=== PATIENT | female | born 1960 | race Caucasian/White ===

== ENCOUNTER → 2017-12-09 | Outpatient (CLI) | payer MEDICAID ==
--- NOTE | 2017-12-13 11:10 | MM ---
Reason for exam: screening (asymptomatic). Last mammogram was performed 2 years and 1 month ago. History: Silicone gel implant in the left breast, 2013. Silicone gel implant in the right breast, 2013. Taking estrogen. Taking progesterone. Physical Findings: A clinical breast exam by your physician is recommended on an annual basis and results should be correlated with mammographic findings. MG 3D Screen Mammo Imp/Cad Bilateral CC and MLO view(s) were taken. Prior study comparison: November 15, 2015, bilateral MG 3d diag mammo imp w/cad [facility]. November 01, 2006, bilateral screening mammogram w/CAD. The breast tissue is heterogeneously dense. This may lower the sensitivity of mammography. No suspicious abnormality. No significant changes when compared with prior studies. ASSESSMENT: Negative, BI-RAD 1 RECOMMENDATION: Routine screening mammogram of both breasts in 1 year.
== END | disposition home or self-care (01) ==
LOC: RADMAMWWP 11:05
PROVIDERS: ATTEND Family Medicine
DX: Z12.31 Encounter for screening mammogram for malignant neoplasm of breast (principal)
CPT/HCPCS: 77063; 77067

== ENCOUNTER → 2018-05-18 | Outpatient (CLI) | payer MEDICAID ==
--- NOTE | 2018-05-18 15:02 | MR ---
EXAMINATION TYPE: MR knee RT wo con DATE OF EXAM: 05/18/2018 COMPARISON: None HISTORY: Sprain of ACL, right knee TECHNIQUE: Multiplanar, multisequence imaging of the right knee is performed without IV contrast. FINDINGS: MEDIAL MENISCUS: Anterior and posterior horns are intact without tear. LATERAL MENISCUS: Anterior and posterior horns are intact without tear. CRUCIATE LIGAMENTS: The anterior and posterior cruciate ligaments are intact and unremarkable. COLLATERAL LIGAMENTS: The medial collateral ligament and lateral collateral ligament complex are inta ct and unremarkable. EXTENSOR MECHANISM: Visualized quadriceps and patellar tendons are intact. EFFUSION: There is a large suprapatellar effusion. This extends the knee joint space. POPLITEAL CYST: There is a large complex popliteal cyst measuring 8.3 x 1.7 cm in size. TRICOMPARTMENT SPACES: Preserved. CARTILAGE: There is some thinning of the patellofemoral joint space articular cartilage. There is a d efect within the distal lateral femoral condyle articular surface BONE MARROW SIGNAL: No focal abnormal marrow signal is appreciated. OTHER: No additional significant abnormality is appreciated. IMPRESSION: 1. Defect along the lateral femoral condylar articular cartilage. Remaining articular cartilage appea rs intact. Some thinning of the patellofemoral cartilage is present. 2. Large joint effusion. 3. Large popliteal cyst. 4. No suspicious anterior cruciate ligament strain or tear
== END | disposition home or self-care (01) ==
LOC: RADMRIMAIN 08:12
PROVIDERS: ATTEND Family Medicine
DX: M71.21 Synovial cyst of popliteal space [Baker], right knee (principal)

== ENCOUNTER 2018-06-09 12:14 | Day surgery (SDC) | payer MEDICAID ==
[2018-06-09] MEDS ORDERED: TRIAMCINOLONE ACETONIDE 40 MG/ML 1 ML VIAL INTRABURSA STA (12:52)
[2018-06-09 14:11] VITALS: RESP 18; TEMP 97.6
[2018-06-09 14:13] VITALS: BP 133/78; PULSE 74
--- NOTE | 2018-06-09 22:01 | US ---
Ultrasound guided right Farley's cyst aspiration and injection Date: 06/09/2018 History: 57-year-old female swelling and pain, referred for Farley cyst aspiration and injection. Procedure: 1. Ultrasound of the right popliteal fossa. 2. Aspiration followed by injection of Kenalog and lidocaine with ultrasound guidance. Technique: The procedure, risks, and alternatives, were discussed with the patient, who requested that luis antonio daugherty. The consent form was signed, and teach-back occurred. The site/side of the procedure was marked wi th a line with participation by the patient. The accompanying paperwork was verified for consistency. A directed history and physical exam was performed prior to the procedure. Medication reconciliation was performed by ancillary personnel. A critical pause was performed with assisting personnel just p rior to the procedure and the patient's identity was confirmed using 2 identifiers. Imaging guidance was utilized to select the precise skin entry point just prior to the procedure. Targeted imaging shows a moderate to large size, 5.0 x 1.5 x 2.1 cm leaking Farley's cyst with some in ternal thickened synovium. The superior aspect of the posterior knee was also scanned but the complex components of the Farley cyst seen on 05/18/2018 MRI are no longer identified. The right popliteal fossa was prepped and draped in the usual sterile fashion and local 1% lidocaine anesthesia was instilled. Under ultrasound guidance, an 18 gauge spinal needle was introduced into the Farley's cyst. Aspiration yielded 10 mL of clear, synovial fluid without difficulty. The cyst was seen to collapse completely with aspiration. However, some residual thickened synovium remains. Subsequently, under ultrasound surveillance, 1 mL of Kenalog-40 was injected into the collapsed cyst followed by 3 mL of 1% lidocaine as the needle was withdrawn. The patient tolerated the procedure well. There were no immediate complications. After the procedure, the patient's condition was unchanged. Es timated blood loss was minimal. The patient was instructed on routine postprocedure precautions. IMPRESSION: Successful ultrasound guided aspiration and steroid injection (40 mg Kenalog) of a mildly complex 5.0 cm right-sided leaking Farley's cyst without complication. Following aspiration, residual mild thicke oscar synovium remains around the collapsed cyst. 10 mL of clear synovial fluid was removed.
== END 2018-06-09 14:10 | disposition home or self-care (01) ==
LOC: RADPROMAIN 12:14
PROVIDERS: ATTEND Orthopaedic Surgery Sports Medicine
DX: M71.21 Synovial cyst of popliteal space [Baker], right knee (principal)
CPT/HCPCS: 96376; 36415; 20611; J3301; 10160; 76942

== ENCOUNTER 2019-01-24 08:57 | Day surgery (SDC) | payer MEDICAID ==
[2019-01-24] MEDS ORDERED: TRIAMCINOLONE ACETONIDE 40 MG/ML 1 ML VIAL INTRABURSA ONE (09:15)
[2019-01-24 09:33] VITALS: PULSE 76; RESP 18; TEMP 98.1
[2019-01-24 10:04] VITALS: BP 137/76
--- NOTE | 2019-01-24 11:43 | US ---
Ultrasound guided right Farley cyst aspiration and injection Date: 01/24/2019 History: 58-year-old female with right knee pain, referred for aspiration and injection of Farley's cy st. Patient reports 9 months of relief following the prior aspiration and injection. Procedure: 1. Ultrasound of the posterior right knee 2. Injection of Kenalog-40 and lidocaine with ultrasound guidance. Technique: The procedure, risks, and alternatives, were discussed with the patient, who requested pilo t we proceed. The consent form was signed, and teach-back occurred. The site/side of the procedure wa s marked with a line with participation by the patient. The accompanying paperwork was verified for c onsistency. A directed history and physical exam was performed prior to the procedure. Medication rec onciliation was performed by ancillary personnel. A critical pause was performed with assisting sameera nicolas just prior to the procedure and the patient's identity was confirmed using 2 identifiers. Imagin g guidance was utilized to select the precise skin entry point just prior to the procedure. Initial ultrasound scanning demonstrates very complex moderate-sized Farley's cyst measuring 4.8 x 1.6 x 2.2 cm. There is extensive thickened synovium within. Small fluid locules are present, the largest fluid pocket measuring approximately 1.5 cm. This is targeted for aspiration. The posterior right knee was prepped and draped in the usual sterile fashion and local 1% lidocaine a nesthesia was instilled. Under ultrasound guidance, an 18 gauge spinal needle was introduced into the right Farley cyst. Ultrasound confirmed the position of the needle tip. Aspiration yielded 3 mL of cl ear synovial fluid in demonstrated collapse of the dominant fluid pocket. Under ultrasound surveillan ce , one mL of Kenalog-40 was injected into the Farley's cyst. Subsequently, 1.5 mL of 1% lidocaine wa s injected into the Farley's cyst and along the needle tract as a needle was removed. The patient tole rated the procedure well. There were no immediate complications. After the procedure, the patient's condition was unchanged. Es timated blood loss was minimal. IMPRESSION: 1. Moderate-sized, highly complex Farley's cyst with extensive thickened synovium. 2. Successful ultrasound guided right Farley cyst aspiration targeting the largest fluid pocket yieldi ng 3 mL of fluid. Successful subsequent injection (40 mg Kenalog 1.5 mL 1% lidocaine) without immedia te complication.
== END 2019-01-24 11:00 | disposition home or self-care (01) ==
LOC: RADPROMAIN 08:57
PROVIDERS: ATTEND Orthopaedic Surgery
DX: M71.21 Synovial cyst of popliteal space [Baker], right knee (principal)
CPT/HCPCS: 20611; J3301; 76942

== ENCOUNTER 2019-04-12 09:16 | Day surgery (SDC) | payer MEDICAID ==
[2019-04-11 09:21] VITALS: BMI 23.7
[~2019-04-12 09:16] MED LIST: LACTATED RINGERS 1,000 ML IV SCH; LIDOCAINE 1% 20 ML VIAL (10MG/ML) FOR IV START INTRADERMA PRN
[2019-04-12 09:37] VITALS: RESP 16; TEMP 98
[2019-04-12] MEDS ORDERED: PROPOFOL 10 MG/ML 20 ML VIAL IV ONE (10:33)
[2019-04-12] MEDS ORDERED: LIDOCAINE 1% INJ 10MG/ML (20 ML MDV) ONE (10:33)
--- NOTE | 2019-04-12 10:49 | P.PCN ---
Date of Procedure: 04/12/19 Procedure(s) Performed: BRIEF HISTORY: Patient is a 58-year-old pleasant female, scheduled for an elective colonoscopy as a part of screening for colorectal neoplasia. PROCEDURE PERFORMED: Colonoscopy. PREOPERATIVE DIAGNOSIS: Screening for colon cancer. IV sedation per Anesthesia. PROCEDURE: After informed consent was obtained, the patient, was brought into the endoscopy unit. IV sedation was administered by Anesthesia under continuous monitoring. Digital rectal examination was normal. Initially the Olympus CF-160 flexible video colonoscope was then inserted in the rectum, gradually advanced into the cecum without any difficulty. Careful examination was performed as the scope was gradually being withdrawn. Ileocecal valve and the appendiceal orifice were visualized and appeared normal. Prep was excellent. Mucosa of the cecum, ascending colon, transverse colon, descending colon, sigmoid colon, and rectum appeared normal. Retroflexion was performed in the rectum and no lesions were seen. The patient tolerated the procedure well. IMPRESSION: Normal-appearing colon from rectum to cecum with no evidence of colorectal neoplasia. RECOMMENDATIONS: Findings of this examination were discussed with the patient as well as her family. She was advised to have a repeat screening colonoscopy in 10 years.
[2019-04-12 11:09] VITALS: BP 135/87; PULSE 75
== END 2019-04-12 11:41 | disposition home or self-care (01) ==
LOC: ORWHC2ENDO 09:16
PROVIDERS: ATTEND Internal Medicine Gastroenterology
DX: Z12.11 Encounter for screening for malignant neoplasm of colon (principal); Z79.890 Hormone replacement therapy
CPT/HCPCS: J2001; J2704; G0121

== ENCOUNTER → 2020-04-22 | Outpatient (CLI) | payer MEDICAID | END | disposition home or self-care (01) | LOC: LABWHC1 14:01 | PROVIDERS: ATTEND Family Medicine | DX: Z20.828 Contact with and (suspected) exposure to other viral communicable diseases (principal) | CPT/HCPCS: 36415; 86769 ==

== ENCOUNTER → 2023-04-12 | Outpatient (CLI) | payer MEDICAID ==
--- NOTE | 2023-04-13 09:51 | MM ---
Reason for Exam: Hx of breast augmentation, asymptomatic. Last mammogram was performed 5 year(s) and 4 month(s) ago. Patient History: Menarche at age 14. First Full-Term at age 26. Postmenopausal. Currently using Estrogen. Currently using Progesterone. 2012, Implant on the left side. 2012, Implant on the right side. Risk Values: Kasey 5 year model risk: 1.3%. NCI Lifetime model risk: 6.6%. Prior Study Comparison: 11/01/2006 Bilateral Screening Mammogram, [facility]. 11/15/2015 Bilateral Diagnostic Mammogram, [facility]. 12/09/2017 Bilateral Screening Mammogram, [facility]. Tissue Density: The breast tissue is heterogeneously dense. This may lower the sensitivity of mammography. Findings: Analyzed By CAD. Pattern appears symmetrical and stable. Bilateral breast prostheses are evident. No significant interval changes are evident No suspicious groups of microcalcifications, spiculated or lobular masses, architectural distortion or other secondary signs of malignancy are mammographically apparent. Overall Assessment: Benign, BI-RAD 2 Management: Screening Mammogram of both breasts in 1 year. A negative mammogram report should not preclude additional follow up of suspicious palpable abnormalities. Patient should continue monthly self breast exam. A clinical breast exam by your physician is recommended on an annual basis and results should be correlated with mammographic findings. Electronically signed and approved by: Ranjeet Price D.O. Radiologis
== END | disposition home or self-care (01) ==
LOC: RADMAMWWP 15:06
PROVIDERS: ATTEND Obstetrics & Gynecology
DX: Z12.31 Encounter for screening mammogram for malignant neoplasm of breast (principal); Z78.0 Asymptomatic menopausal state
CPT/HCPCS: 77063; 77067

== ENCOUNTER → 2025-03-16 | Outpatient (CLI) | payer MEDICAID ==
--- NOTE | 2025-03-16 09:26 | MM ---
Reason for Exam: Screening (asymptomatic). Last mammogram was performed 1 year(s) and 11 month(s) ago. Patient History: Menarche at age 14. First Full-Term at age 26. Postmenopausal. Currently using Estrogen. Currently using Progesterone. 2012, Implant on the left side. 2012, Implant on the right side. Risk Values: Kasey 5 year model risk: 1.4%. NCI Lifetime model risk: 6.2%. Prior Study Comparison: 11/15/2015 Bilateral Diagnostic Mammogram, [facility]. 12/09/2017 Bilateral Screening Mammogram, [facility]. 04/12/2023 Bilateral MG 3D screen mammo imp/cad., [facility]. Tissue Density: The breasts are heterogeneously dense, which may obscure small masses. Findings: Analyzed By CAD. Bilateral retropectoral silicone implants are redemonstrated. There is an area of nodular asymmetric density far posterior inferior right MLO view on the implant displacement view not clearly seen previously. Further evaluation recommended. Otherwise, no significant change. Overall Assessment: Incomplete: need additional imaging evaluation, BI-RAD 0 Management: Special View Mammogram of the right breast. Diagnostic Breast Ultrasound of the right breast. [facility] will attempt to contact patient to return for supplemental views and ultrasound. [facility], , 03/16/2025 9:23 AM. Electronically signed and approved by: Alexa Hutchins M.D. Radiologist
== END | disposition home or self-care (01) ==
LOC: RADMAMWWP 08:50
PROVIDERS: ATTEND Obstetrics & Gynecology Obstetrics
DX: Z12.31 Encounter for screening mammogram for malignant neoplasm of breast (principal); R92.333 Mammographic heterogeneous density, bilateral breasts; Z98.82 Breast implant status; Z78.0 Asymptomatic menopausal state
CPT/HCPCS: 77063; 77067

== ENCOUNTER → 2025-03-23 | Outpatient (CLI) | payer MEDICAID ==
--- NOTE | 2025-03-23 15:35 | USB ---
Reason for Exam: Additional evaluation requested from abnormal screening. Patient History: Menarche at age 14. First Full-Term at age 26. Postmenopausal. Currently using Estrogen. Currently using Progesterone. 2012, Implant on the left side. 2012, Implant on the right side. Risk Values: Ksaey 5 year model risk: 1.4%. NCI Lifetime model risk: 6.2%. Prior Study Comparison: 11/15/2015 Bilateral Diagnostic Mammogram, [facility]. 12/09/2017 Bilateral Screening Mammogram, [facility]. 04/12/2023 Bilateral MG 3D screen mammo imp/cad., [facility]. 03/16/2025 Bilateral MG 3D screen mammo imp/cad., [facility]. Findings: The lower outer quadrant of the right breast, the axilla of the right breast and the retroareolar of the right breast were scanned. Electronically signed and approved by: Bakari Love DO
== END | disposition home or self-care (01) ==
LOC: RADMAMWWP 14:53
PROVIDERS: ATTEND Obstetrics & Gynecology Obstetrics
DX: R92.8 Other abnormal and inconclusive findings on diagnostic imaging of breast (principal); Z78.0 Asymptomatic menopausal state; Z98.82 Breast implant status